=== PATIENT | male | born 2000 | race Caucasian/White ===

== ENCOUNTER → 2021-11-11 | Day surgery (SDC) | payer OTHER ==
[2021-11-10 14:01] VITALS: BMI 19.0
[~2021-11-11] MED LIST: PROPOFOL 10 MG/ML 20 ML VIAL IV ONE
--- NOTE | 2021-11-11 14:46 | P.PCN ---
Date of Procedure: 11/11/21 Procedure(s) Performed: BRIEF HISTORY: Patient is a 21-year-old pleasant white male scheduled for an elective colonoscopy as a part of evaluation of right lower quadrant abdominal pain associated with altered bowel movements for the last 1 year duration. PROCEDURE PERFORMED: Colonoscopy with biopsy. PREOPERATIVE DIAGNOSIS: Right lower quadrant abdominal pain and change in bowel habits IV sedation per Anesthesia. PROCEDURE: After informed consent was obtained, the patient, was brought into the endoscopy unit. IV sedation was administered by Anesthesia under continuous monitoring. Digital rectal examination was normal. Initially the Olympus CF-160 flexible video colonoscope was then inserted in the rectum, gradually advanced into the cecum without any difficulty. Careful examination was performed as the scope was gradually being withdrawn. Ileocecal valve and the appendiceal orifice were visualized and appeared normal. Prep was excellent. Terminal ileum was intubated and 20 cm visualized and appeared normal. There was mild lymphoid hyperplasia noted. Biopsies were done from this area. Mucosa of the cecum, ascending colon, transverse colon, descending colon, sigmoid colon, and rectum appeared normal. Random biopsies were done from ascending and descending colon to rule out. The Collagenous colitis. Retroflexion was performed in the rectum and no lesions were seen. The patient tolerated the procedure well. IMPRESSION: Normal-appearing colon from rectum to cecum with no evidence of colorectal neoplasia . Normal-appearing terminal ileum RECOMMENDATIONS: Findings of this examination were discussed with the patient as well his family. He was advised to follow with the biopsy results. He'll be the office in 2 weeks..
== END ==
LOC: ORWHC2ENDO 10:02
PROVIDERS: ATTEND Internal Medicine Gastroenterology
DX: R19.4 Change in bowel habit (principal); R59.9 Enlarged lymph nodes, unspecified; R10.31 Right lower quadrant pain; K21.9 Gastro-esophageal reflux disease without esophagitis; Z79.899 Other long term (current) drug therapy; Z88.1 Allergy status to other antibiotic agents
CPT/HCPCS: 88305; 45380; J2704

== ENCOUNTER → 2021-12-31 | Outpatient (CLI) | payer OTHER ==
--- NOTE | 2021-12-31 13:00 | CT ---
EXAMINATION TYPE: CT abdomen pelvis wo/w con CT DLP: 826.2 mGycm, Automated exposure control for dose reduction was used. DATE OF EXAM: 12/31/2021 12:32 PM COMPARISON: None CLINICAL INDICATION:Male, 21 years old with history of R63.4 ABNORMAL WEIGHT LOSS; stomach pain, weig ht loss TECHNIQUE: Standard CT of the abdomen and pelvis. Coronal and sagittal reformats were performed. Contrast used:70 mL of Isovue 300, Oral contrast: Oral contrast was utilized. FINDINGS: LOWER CHEST: Layering contrast is seen within the esophagus. ABDOMEN LIVER: Unremarkable GALLBLADDER AND BILE DUCTS: The gallbladder is surgically absent. PANCREAS: Unremarkable. SPLEEN: Unremarkable. ADRENAL GLANDS: Unremarkable. KIDNEYS AND URETERS: No evidence of hydronephrosis or renal calculus. The ureters are unremarkable. PELVIS BLADDER: Unremarkable REPRODUCTIVE: Unremarkable. ABDOMEN & PELVIS STOMACH AND BOWEL: No evidence of bowel obstruction. There is a shallow angle of the superior mesente jose g artery off of the aorta PERITONEUM: No evidence of pneumoperitoneum or free fluid. VASCULATURE: No evidence of aortic aneurysm. There is a shallow angle of the superior mesenteric sean ry which compresses the duodenum and left renal vein. Best appreciated on series 6 image 33 of the du odenum and series 6 image 28 for the left renal vein. MUSCULOSKELETAL: No acute osseous abnormalities LYMPH NODES: No gross evidence for lymphadenopathy. SOFT TISSUE/ABDOMINAL WALL: Unremarkable IMPRESSION: 1. 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 Otherwise there is no evidence for mas s or acute process. 2. Layering contrast within the esophagus correlate for reflux.
== END | disposition home or self-care (01) ==
LOC: RADCTMAIN 10:19
PROVIDERS: ATTEND Internal Medicine Gastroenterology
DX: R10.9 Unspecified abdominal pain (principal); R63.4 Abnormal weight loss
CPT/HCPCS: 74178; Q9967

== ENCOUNTER → 2024-10-30 | Outpatient (CLI) | payer OTHER ==
--- NOTE | 2024-10-30 15:05 | US ---
EXAMINATION TYPE: US extremity nonvasc mass LT DATE OF EXAM: 10/30/2024 COMPARISON: NONE CLINICAL INDICATION: Male, 24 years old with history of M79.89 OTH SPECIF SOFT TISSUE DISORDERS; hit knee on railing 1 months ago, now hos several palpables and pain at medial/ superior knee TECHNIQUE: A clinical imaging and area of palpable abnormality. several images taken at area of josy rn with color and compressions FINDINGS: At patients area of concern, there is thrombus with the GSV (palpable area 2) with a large thrombosed area outpouching from the side of the vessel measuring 2.3x0.6x1.3cm (palpable area 1). There is also an additional smaller palpable area (3) with corresponds to a small area of thrombus wi thin a varicose vein. IMPRESSION: As above [facility], , 10/30/2024 3:03 PM
== END | disposition home or self-care (01) ==
LOC: RADUSWWP 13:51
PROVIDERS: ATTEND Family Medicine
DX: I82.812 Embolism and thrombosis of superficial veins of left lower extremity (principal); I83.92 Asymptomatic varicose veins of left lower extremity